=== PATIENT | male | born 1940 | race Caucasian/White ===

== ENCOUNTER 2016-05-14 21:52 | Observation (INO) | payer OTHER ==
[2016-05-14] MEDS ORDERED: NITROGLYCERIN SL PRN (21:59)
[2016-05-14] MEDS ORDERED: ASPIRIN PO STA (21:59)
[2016-05-14] MEDS ORDERED: MORPHINE IV ONE (22:08)
--- NOTE | 2016-05-14 22:14 | PROVIDER DOCUMENTATION ---
HPI-Chest Pain - General Chief Complaint: Chest Pain Stated Complaint: CP Time Seen by Provider: 05/14/16 21:58 Allergies/Adverse Reactions: Patient Allergies Allergy/AdvReac Type Severity Reaction Status Date / Time Sulfa (Sulfonamide Allergy Mild RASH Verified 05/14/16 22:19 Antibiotics) [Sulfa(Sulfonamide Antibiotics)] Home Medications: Home Medication List Medication Instructions Recorded Confirmed Last Taken Type Omeprazole 20 mg PO DAILY 02/22/12 09/25/14 09/25/14 05:15 History Rosuvastatin Calcium [Crestor] 10 mg PO DAILY #0 tablet 02/23/12 09/25/14 18:30 Rx Temazepam [Restoril] 30 mg PO HS PRN PRN #30 capsule 02/23/12 09/25/14 09/24/14 18:30 Rx Acetaminophen [Tylenol] 1,000 mg PO Q6H PRN PRN 09/24/14 09/24/14 Unknown History Amiodarone [Cordarone] 100 mg PO DAILY 09/24/14 09/25/14 09/25/14 05:15 History Furosemide [Lasix] 20 mg PO TID 09/25/14 09/25/14 09/24/14 18:00 History Glucosamine/D3/Boswellia Madhuri 2 each PO DAILY 09/25/14 09/25/14 09/25/14 05:15 History [Osteo Bi-Flex Caplet] Potassium Chloride [Klor-Con M20] 20 meq PO DAILY 09/25/14 09/25/14 09/25/14 05: 15 History Tamsulosin HCl [Tamsulosin HCl] 0.4 mg PO DAILY 09/25/14 09/25/14 09/24/14 18: 30 History - History of Present Illness-CP Nature of Presenting Problem: Pt comes in with complaint of CP that started yesterday while walking up a hill. He denies any SOB, N/V/D. The pain is midsternal and the pain radiated to the back. The pain is reproducible with palpation. the pain in his right side of his back is more definite pain and the patient is in 10/10 pain with movement. Review of Systems - Adult - REVIEW OF SYSTEMS - ADULT Constitutional: reports: no symptoms reported. denies: chills, fever, fatique, night sweats, weight gain, weight loss Eyes: reports: no symptoms reported. denies: discharge, dry eyes, decreased vision, blurred vision, double vision, eye pain, redness Ears, Nose, Mouth & Throat: reports: no symptoms reported. denies: ear discharge, hearing loss, tinnitus, epistaxis, sinus problem, mouth/dental pain, hoarseness, throat swelling Cardiovascular: reports: see HPI, chest pain. denies: edema, heart murmur, irregular heart rate, orthopnea, poor circulation, PND, syncope Respiratory: reports: no symptoms reported. denies: chronic cough, cough, dyspnea on exertion, excessive sputum production, hemoptysis, shortness of breath, wheezing Gastrointestinal: reports: see HPI. denies: abdominal pain, hematemesis, constipation, diarrhea, difficulty swallowing, frequent heartburn, nausea, poor appetite, rectal bleeding, vomiting Genitourinary: reports: no symptoms reported. denies: dysuria, discharge, frequency, flank pain, frequent UTI's, hesitency, incontinence, urgency Musculoskeletal: reports: see HPI, back pain. denies: bone pain, frequent leg cramps, joint pain, joint swelling, muscle aches, muscle weakness Integumentary: reports: no symptoms reported. denies: hives, hair loss, itching , mole changes, rash, skin sores/ulcer, skin thickening Neurological: reports: no symptoms reported. denies: ataxia, dizziness/vertigo , headache/migraines, loss of balance, numbness, paresthesia, slurred speech, syncope, tremors Psychiatric: reports: no symptoms reported. denies: anxiety, anti-depressant use, alcohol/drug dependence, depression, emotional problems, insomnia, panic attacks, suicidal thoughts Endocrine: reports: no symptoms reported. denies: change in skin pigment, excessive sweating, goiter, cold intolerance, increased hunger, increased thirst , polyuria Hematologic/Lymphatic: reports: no symptoms reported. denies: blood clots, easy bruising, lymphedema, prolonged bleeding, swollen lymph nodes, transfusions Allergic/Immunologic: reports: no symptoms reported. denies: allergic reactions , allergic rhinitis, eczema, food allergy, hay fever, positive PPD, urticaria All Other Systems: Reviewed and Negative Past History - Adult - PAST MEDICAL HISTORY-ADULT Review of Records: reports: Old Records Reviewed, Nursing Assessment Review, Medications Reviewed, Social history reviewed & non-contributory. Major Childhood Illnesses: reports: denies history Cardiovascular: reports: A-Fib, HTN, hyperlipidemia Respiratory: reports: denies history Gastrointestinal: reports: denies history Obstetrical/Gynecological: reports: denies history Genitourinary: reports: denies history Musculoskeletal: reports: denies history Neurological: reports: denies history Endocrine/Immune: reports: denies history Other Conditions: reports: denies history - PRIOR SURGERIES/PROCEDURES Surgical/Procedure History: reports: reviewed, not pertinent - PRIOR HOSPITALIZATIONS Prior Hospitalizations: reports: for other non-related - IMMUNIZATION STATUS Childhood Immunizations: See Nurse Assessment Flu Vaccine: See Nurse Assessment - FAMILY HISTORY Family History: reviewed, not pertinent - SOCIAL HISTORY Smoking: denies Substance Use: none/never Alcohol Use Frequency: never Physical Exam-General - PHYSICAL EXAM-ADULT Initial Vital Signs Reviewed: Yes - CONSTITUTIONAL General Appearance: alert, no apparent distress, moderate distress - EYES Eyes: PERRL/EOMI, pink conjunctivae, fundi clear, no AV nicking - HEAD, EARS, NOSE, MOUTH & THROAT HENMT: normocephalic/atraumatic, moist mucous membranes, normal ENT inspection - NECK Neck: non-tender, full range of motion, supple - RESPIRATORY Respiratory: chest non-tender, lungs clear, normal breath sounds, no pleuratic chest pain, no respiratory distress - CARDIOVASCULAR Cardiovascular: normal peripheral pulses, regular rate, rhythm, no edema, no gallop, no JVD, no murmur - GASTROINTESTINAL (ABDOMEN) Abdominal Exam: normal bowel sounds, non tender, soft - GENITOURINARY Rectal Exam: deferred - MUSCULOSKELETAL Back Exam: no CVA tenderness, vertebral tenderness Extremity: normal range of motion, non-tender, normal gait, normal inspection - SKIN Integumentary: normal color, normal turgor, warm/dry - NEUROLOGIC Neurologic: delivery stock clerk II-XII nml as tested, grossly normal - PSYCHIATRIC Psych/Mental Status: normal mood/affect, normal thought content, normal thought process, oriented x 3 Progress - PLAN OF CARE/RESULTS Progress/Plan/Lab Results: Laboratory Tests 05/14/16 05/14/16 05/14/16 22:13 22:13 22:13 WBC 7.22 RBC 4.31 L Hgb 13.4 L Hct 40.7 L MCV 94.4 MCH 31.1 H MCHC 32.9 L RDW Std Deviation 13.6 Plt Count 213 MPV 11.0 H Immature Gran % (Auto) 0.6 H Neut % (Auto) 67.1 Lymph % (Auto) 19.9 L Morton % (Auto) 7.8 Eos % (Auto) 4.0 Baso % (Auto) 0.6 Immature Gran # (Auto) 0.04 Neut # (Auto) 4.85 Lymph # (Auto) 1.44 Morton # (Auto) 0.56 Eos # (Auto) 0.29 Baso # (Auto) 0.04 PT INR PTT (Actin FS) D-Dimer 0.96 H Sodium 141 Potassium 4.0 Chloride 100 Carbon Dioxide 25 Anion Gap 16 BUN 50 H Creatinine 1.9 H Estimated GFR/1.73 m2 35 BUN/Creatinine Ratio 26 Glucose 103 Calculated Osmolality 295 Calcium 9.7 Magnesium 2.1 Total Bilirubin 0.30 AST 21 ALT 17 Alkaline Phosphatase 68 Creatine Kinase 114 Troponin T Uos-M-Sfbzdyscdma Pept Total Protein 7.7 Albumin 4.4 Globulin 3.3 Albumin/Globulin Ratio 1.3 05/14/16 05/14/16 05/14/16 22:13 22:13 22:13 WBC RBC Hgb Hct MCV MCH MCHC RDW Std Deviation Plt Count MPV Immature Gran % (Auto) Neut % (Auto) Lymph % (Auto) Morton % (Auto) Eos % (Auto) Baso % (Auto) Immature Gran # (Auto) Neut # (Auto) Lymph # (Auto) Morton # (Auto) Eos # (Auto) Baso # (Auto) PT 10.7 INR 1.01 PTT (Actin FS) 25.2 D-Dimer Sodium Potassium Chloride Carbon Dioxide Anion Gap BUN Creatinine Estimated GFR/1.73 m2 BUN/Creatinine Ratio Glucose Calculated Osmolality Calcium Magnesium Total Bilirubin AST ALT Alkaline Phosphatase Creatine Kinase Troponin T < 0.010 [id number]-M-Itdrnnjdbks Pept 32 Total Protein Albumin Globulin Albumin/Globulin Ratio Orders Category Date Time Status Cardiac Monitoring DIRECTED Care 05/14/16 21:59 Active Oxygen Therapy- ED Nursing DIRECTED Care 05/14/16 21:59 Active Saline Loc NOW Care 05/14/16 21:59 Active CHEST-1 VIEW [RAD] Stat Exams 05/14/16 21:59 Taken LUNG SCAN / VQ [NM] Routine Exams 05/15/16 08:00 Ordered CBC WITH ELECTRONIC DIFF [HEME] Stat Lab 05/14/16 22:13 Completed CK PROFILE [SP CHEM] Stat Lab 05/14/16 22:13 Completed COMPREHENSIVE METABOLIC PANEL [CHEM] Stat Lab 05/14/16 22:13 Completed D-DIMER [CHEM] Stat Lab 05/14/16 22:13 Completed MAGNESIUM [CHEM] Stat Lab 05/14/16 22:13 Completed PRO B-NATRIURETIC PEPTIDE Stat Lab 05/14/16 22:13 Completed PROTIME WITH INR [COAG] Stat Lab 05/14/16 22:13 Completed PTT [COAG] Stat Lab 05/14/16 22:13 Completed TROPONIN T Stat Lab 05/14/16 22:13 Completed Aspirin Med 05/14/16 22:15 Discontinued 243 mg .ROUTE .STK-MED ONE Aspirin Med 05/14/16 22:22 Discontinued 243 mg PO NOW ONE Aspirin Med 05/14/16 21:59 Discontinued 325 mg PO STAT STA Aspirin Med 05/14/16 22:22 Discontinued 81 mg PO NOW ONE Fondaparinux [Arixtra] Med 05/14/16 23:14 Discontinued 10 mg SUBQ NOW ONE Morphine Med 05/14/16 22:08 Discontinued 4 mg IV NOW ONE Nitroglycerin Sl [Nitroglycerin] Med 05/14/16 21:59 Active 0.4 mg SL Q5M PRN PRN EKG [EKG] Stat Ther 05/14/16 21:56 Ordered Vital Signs - 24 hr 05/14/16 23:11 Pulse Rate 51 L Respiratory 9 L Rate Blood Pressure 140/78 O2 Sat by Pulse 97 Oximetry Departure - Departure Time of Disposition Order: 23:15 DIAGNOSIS: Chest pain Qualifiers: Chest pain type: unspecified Qualified Code(s): R07.9 - Chest pain, unspecified Disposition: ADMITTED INPATIENT 09 Certified Medical Emergency: Emergent Condition: Good Additional Instructions: ED Follow Up Instructions: You have been treated by a care provider in the Emergency Department. These instructions are being provided to you so you can have an understanding of how to care for yourself upon discharge. Upon discharge from the Emergency Department, you are responsible for making arrangements for follow-up care by a physician of your choice. Take all prescribed medications as directed. Return to the Emergency Department immediately for any new or worsening symptoms. You may call the Physician Referral phone number at [phone] to obtain a list of Physicians who are taking new patients. Referrals: Brandyn Haywood, [Primary Care Provider] - Attestation - Physician/ CLEMENTE Attestation Patient care was provided by Advanced Practice Provider:: Yes Advanced Practice Provider:: Reji Villareal Advanced Practice Provider documentation review:: The Mid-level provider documentation, treatment plan and medical decision making was reviewed by the physician who agrees with all treatment and medical decision making by the MLP.
[2016-05-14] MEDS ORDERED: ASPIRIN ONE (22:15)
--- NOTE | 2016-05-14 22:21 | ED EKG INTERP ---
EKG Interpretation - EKG Time of EKG reading by physician:: 21:59 EKG Read and Signed by:: Silvestre Eisenberg EKG Interpretation (*Must complete 3 of following elements*): Normal Rate: 60 Rhythm: Sinus rhythm with premature supraventricular complexes Attestation - Scribe Verification/Attestation Scribe:: Arden Cloud Acting as Scribe for:: Silvestre Eisenberg Scriblinda documention review:: This chart was documented by a scribe and accurately reflects the service the provider performed and the decisions made by the provider.
[2016-05-14 22:22] LABS: MANUAL DIFF NEEDED? NO
[2016-05-14] MEDS ORDERED: ASPIRIN PO ONE ×2 (22:22)
[2016-05-14 22:24] LABS: BASO% 0.6 % (0.0-0.8); EOS# 0.29 X1000 (0.0-0.7); HEMATOCRIT 40.7 % (42.0-52.0); HEMOGLOBIN 13.4 g/dL (14.0-18.0); IMM GRAN# 0.04 X1000 (0.0-0.04); IMM GRAN% 0.6 % (0.0-0.5); LYMPH# 1.44 X1000 (1.2-3.4); LYMPH% 19.9 % (20.5-51.1); MCH 31.1 PG (27-31); MCHC 32.9 g/dL (33-37); MCV 94.4 FL (81-99); MONO# 0.56 X1000 (0.11-0.59); MONO% 7.8 % (1.7-9.3); NEUT% 67.1 % (42.2-75.2); PLT 213 X1000 (130-400); RBC 4.31 XMIL (4.7-6.1)
[2016-05-14 22:39] LABS: INR 1.01; PROTIME 10.7 Seconds (9.2-11.7); PTT 25.2 Seconds (22.0-36.0)
[2016-05-14 22:52] LABS: ALBUMIN 4.4 g/dL (3.5-5.0); CALCIUM 9.7 mg/dL (8.8-10.2); MAGNESIUM 2.1 mg/dL (1.5-2.7); TOTAL BILIRUBIN 0.3 mg/dL (0.20-1.00); TOTAL PROTEIN 7.7 g/dL (6.3-8.3)
[2016-05-14] MEDS ORDERED: ARIXTRA SUBQ ONE (23:14)
[2016-05-15] MEDS ORDERED: BENADRYL PO ONE (01:42)
[2016-05-15 02:04] LABS: AMYLASE 54 U/L (20-200); LIPASE 43 U/L (13-60)
[2016-05-15] MEDS ORDERED: MORPHINE IV PRN (02:22)
[2016-05-15] MEDS ORDERED: ZOFRAN IV PRN (02:22)
[2016-05-15] MEDS ORDERED: TYLENOL PO PRN (02:22)
--- NOTE | 2016-05-15 04:50 | HISTORY AND PHYSICAL ---
DATE AND TIME OF HISTORY AND PHYSICAL: May 15, 2016 at 0100. PRIMARY CARE PROVIDER: Dr. Brandyn Haywood. CHIEF COMPLAINT: Chest pain. HISTORY OF PRESENT ILLNESS: Mr. Mcneal is a 75-year-old male with a past medical history of hypertension, chronic renal insufficiency, prediabetes, dyslipidemia, atrial fibrillation, chronic back pain, and prostate cancer. The patient reports that he does intermittently go into atrial fibrillation sometimes and for this he takes amiodarone as well as Xarelto only when he is in atrial fibrillation. He regularly sees Dr. Joe at [place] for cardiology care. Patient has had a history in the past of having to be cardioverted secondary to atrial fibrillation. He presented tonight to the ER complaining of chest pain that started yesterday on May 13, 2016. Patient reports his chest pain as being in the epigastric area. He reports it radiating through to his back and the pain comes from his back around to his right shoulder at times. He reports that the pain is worse with movement. He reports that this was with any movement. He noticed it with light movement, activity, and with more strenuous activity as well. He also reports that when he does try to move the pain in his epigastric area is intense and causes him to feel slightly short of breath though when he is at rest and not moving he denies any shortness of breath. He denies any symptoms of dizziness, palpitations, diaphoresis, nausea, vomiting. The patient does report that he has chronic diarrhea secondary to having radiation for his prostate cancer. He does report that he occasionally has some blood noted in his stool though this is not uncommon for him though is not present at this time. He also reports some intermittent dysuria secondary to his prostate cancer as well though denied any at this time. He denies any swelling in extremities. Patient's pain located in the epigastric area is reproducible with palpation. Upon evaluation in the ER, the patient's EKG showed a sinus rhythm with premature supraventricular complexes at a rate of 60, QTc was 424. Troponin and CK were negative. ProBNP was 32. Patient's D-dimer was elevated at 0.96 though due to the patient's renal function we were unable to perform a CTA of pulmonary arteries. We will admit the patient for further treatment and evaluation of his chest pain as well as elevated D-dimer. We will perform a V/Q scan in the morning. REVIEW OF SYSTEMS: A 14-point review of systems was conducted with the patient and all were negative except for pertinent positives mentioned in above HPI. PAST MEDICAL HISTORY: 1. Hypertension. 2. Chronic renal insufficiency. 3. Dyslipidemia. 4. Hypogonadism. 5. Atrial fibrillation. 6. Chronic back pain. 7. Prostate cancer. 8. Prediabetes. PAST SURGICAL HISTORY: 1. Tonsillectomy as a child. 2. Appendectomy in 1959. 3. Right inguinal repair in 1967. 4. Left knee repair in 1960. 5. Low back surgery in 1968. 6. Lipoma removed from under his left arm. 7. A total left hip replacement. SOCIAL HISTORY: Patient denied any past or present tobacco or illicit drug use. He does report that he occasionally drinks alcohol but this is very minimal, only 1 to 2 drinks. He is and lives with his who is a pathologist here at [facility]. FAMILY HISTORY: His father has a history of hypertension and diabetes though secondary to a stroke. His mother had a history of colon cancer and secondary to pancreatic cancer at age 81. He recently had a sister pass away who he reported had multiple medical problems though her cause of was secondary to sepsis and he has another sister that has a history of trigeminal neuralgia and fibromyalgia. ALLERGIES: Patient reports allergy to sulfa antibiotics. HOME MEDICATIONS: 1. Potassium chloride 20 mEq p.o. daily. 2. Lasix 20 mg p.o. daily. 3. Crestor 10 mg p.o. daily. 4. Flomax 0.4 mg p.o. b.i.d. 5. Doxycycline 100 mg p.o. daily. 6. Vitamin B6 of 50 mg p.o. daily. 7. MiraLax 17 g p.o. daily. 8. Cranberry soft gel 12,600 mg 1 p.o. at bedtime. 9. Multivitamin 1 p.o. daily. 10.Vitamin B12 of 2500 mcg p.o. daily. 11.Valsartan 320 mg p.o. at bedtime. 12.Procardia. The patient reports that he does not know the dosage of this medication though takes it once daily. DIAGNOSTIC DATA: Laboratory results: White blood cell count 7.2. Hemoglobin 13.4. Hematocrit 40.7. Platelet count is 213. PT 10.7. INR of 1.01. PTT 25.2. D-dimer 0.96. Sodium 141. Potassium 4. Chloride 100. Bicarbonate 25. BUN 50. Creatinine 1.9. GFR was 35. Glucose 103. Calcium 9.7. Magnesium 2.1. Liver function tests within normal limits. CK 114. Troponin less than 0.01. ProBNP 32. Amylase 54. Lipase 43. Chest 2-view x-ray showed no acute abnormality though we are awaiting the official radiology overread. PHYSICAL EXAMINATION: VITAL SIGNS: Heart rate 52, respirations 13, blood pressure 135/79, oxygen saturation is 98% room air. During my examination at bedside, the patient's quality assurance monitor did show the patient maintaining heart rate mostly in the 50s though he did have some intermittent dips into the 40s with 44 being the lowest heart rate identified. GENERAL: Mr. Mcneal is a well-nourished, well-developed 75-year-old male who is resting comfortably in the ER stretcher, was in no acute distress, was awake, alert, and able to answer all questions appropriately. HEENT: Head is atraumatic, normocephalic. Pupils are equal, round, reactive to light, are 3 mm bilaterally and brisk. Subconjunctivae are pink. Oral mucosa was moist. Oropharynx clear. NECK: Supple. Trachea is midline. No JVD noted. No carotid bruits noted upon auscultation bilaterally. CARDIOVASCULAR: Patient has a normal S1, S2. No murmurs, gallops, or rubs appreciated with a regular rate but it is slightly bradycardic. PULMONARY: Patient has symmetrical chest expansion bilaterally. Lung sounds are clear to auscultation in bilateral full botello. ABDOMEN: Soft, nondistended, though the patient does have a slightly protuberant abdomen noted. He did report some tenderness upon palpation in the epigastric area. Bowel sounds were present in all 4 quadrants, were normoactive. EXTREMITIES: No clubbing, cyanosis, or edema noted. Pulse, motor, and sensory were intact in all extremities. Pedal pulses were 3 plus bilaterally. Radial pulses are 3 plus bilaterally. Capillary refill is less than 3. INTEGUMENTARY: The patient's skin is pink, warm, dry, and intact. No lesions or sores noted. NEUROLOGICAL: Patient is alert and oriented to person, place, time, and situation. Cranial nerves II through XII are grossly intact. ASSESSMENT AND PLAN: 1. Chest pain though this chest pain seems to be mainly located in the epigastric area. He does report some radiation to his back as well as some shortness of breath as well. He does have a cardiac history of having hypertension and atrial fibrillation. We will continue with a series of cardiac enzymes, repeat an EKG in the morning, and have placed a cardiology consult with Dr. Colon and await their evaluation and further recommendations. The patient will be placed on continuous cardiac telemetry to monitor his heart rate closely. 2. Elevated D-dimer. Due to the patient's chronic kidney disease, we are unable to perform a CTA pulmonary arteries. We will obtain a V/Q scan of the lungs in the morning and continue to follow and await these results. 3. Chronic kidney disease stage 3b. The patient had not had any previous labs recently, the last being in 2013, though I did ask his what his creatinine normally is and she reports that it ranges from 2 to 2.1. Patient's creatinine at this time is 1.9 so this appears to be his baseline. We will just continue to follow and renally dose medications as necessary. 4. Hypertension. We will continue with the patient's valsartan. 5. Dyslipidemia. We will continue the patient's Crestor. We will place the patient on the medical floor with telemetry. He will have vital signs q.4 h. DVT prophylaxis at this time has been provided with the patient receiving a dose of 10 mg of Arixtra subcutaneous in the ER for treatment of suspected pulmonary embolism. GI prophylaxis is provided with omeprazole 20 mg p.o. daily. We will repeat cardiac enzymes, EKG, CBC, and BMP in the morning, and we will await further evaluations from Cardiology and results of the V/Q scan. Dictated by CAPRICE Gastelum for Jose Reyes MD
[2016-05-15 05:56] LABS: MANUAL DIFF NEEDED? NO
[2016-05-15 06:26] LABS: BASO% 0.8 % (0.0-0.8); EOS# 0.34 X1000 (0.0-0.7); EOS% 5.5 % (0.0-10.0); HEMATOCRIT 37.5 % (42.0-52.0); HEMOGLOBIN 12.3 g/dL (14.0-18.0); IMM GRAN# 0.05 X1000 (0.0-0.04); IMM GRAN% 0.8 % (0.0-0.5); LYMPH% 27.6 % (20.5-51.1); MCH 31.1 PG (27-31); MCHC 32.8 g/dL (33-37); MCV 94.7 FL (81-99); MONO# 0.57 X1000 (0.11-0.59); MONO% 9.2 % (1.7-9.3); MPV 11.4 FL (7.4-10.4); NEUT% 56.1 % (42.2-75.2); PLT 185 X1000 (130-400); RBC 3.96 XMIL (4.7-6.1)
--- NOTE | 2016-05-15 06:44 | EKG Report ---
Test Performed on : 05/15/2016 06:11:44 AM Test Reason : Bradycardia Blood Pressure : / mmHG Vent. Rate : 046 BPM Atrial Rate : 046 BPM P-R Int : 150 ms QRS Dur : 086 ms QT Int : 466 ms P-R-T Axes : 058 -06 015 degrees QTc Int : 407 ms Sinus bradycardia. Otherwise normal ECG When compared with ECG of 15-MAY-2016 06:10, (Unconfirmed) premature ventricular complexes. are no longer present premature atrial complexes. are no longer present QRS axis shifted right Confirmed by Jose Elias Boykin MD ([id number]) on 05/16/2016 9:37:00 PM
[2016-05-15] MEDS ORDERED: PRILOSEC PO SCH (07:00)
[2016-05-15 07:12] LABS: CALCIUM 9.6 mg/dL (8.8-10.2); MAGNESIUM 2.1 mg/dL (1.5-2.7); POTASSIUM 3.9 mmol/L (3.5-5.1)
--- NOTE | 2016-05-15 07:19 | EKG Report ---
Test Performed on : 05/15/2016 03:11:21 AM Test Reason : Bradycardia Blood Pressure : / mmHG Vent. Rate : 052 BPM Atrial Rate : 052 BPM P-R Int : 154 ms QRS Dur : 092 ms QT Int : 476 ms P-R-T Axes : 080 009 037 degrees QTc Int : 442 ms Sinus bradycardia. with marked sinus arrhythmia. with occasional premature ventricular complexes. Otherwise normal ECG When compared with ECG of 14-MAY-2016 21:59, (Unconfirmed) premature ventricular complexes. are now present premature supraventricular complexes. are no longer present Confirmed by Jose Elias Boykin MD ([id number]) on 05/16/2016 9:34:31 PM
--- NOTE | 2016-05-15 07:37 | EKG Report ---
Test Performed on : 05/14/2016 9:59:16 PM Test Reason : chest pain Blood Pressure : / mmHG Vent. Rate : 060 BPM Atrial Rate : 060 BPM P-R Int : 148 ms QRS Dur : 082 ms QT Int : 424 ms P-R-T Axes : 072 -13 026 degrees QTc Int : 424 ms Sinus rhythm. with premature supraventricular complexes. Otherwise normal ECG When compared with ECG of 22-FEB-2012 11:49, premature supraventricular complexes. are now present Vent. rate has decreased BY 34 BPM Unconfirmed Result
[2016-05-15] MEDS ORDERED: FLOMAX PO SCH (09:00)
[2016-05-15] MEDS ORDERED: MIRALAX PO SCH (09:00)
[2016-05-15] MEDS ORDERED: ASPIRIN PO SCH (09:00)
[2016-05-15] MEDS ORDERED: NON-FORMULARY MED (Multivitamin [Multivitamins] 1 EACH) PO SCH (09:00)
[2016-05-15] MEDS ORDERED: THERA M PLUS PO SCH (09:00)
[2016-05-15] MEDS ORDERED: CRESTOR PO SCH (09:00)
--- NOTE | 2016-05-15 10:48 | Diag Imaging Result Document ---
PROCEDURE NAME: CHEST-1 VIEW - 05/14/2016 PORTABLE CHEST X-RAY, 05/14/2016: COMPARISON: 12/21/2014. FINDINGS: Stable small calcified granulomas in the right upper lobe. No focal infiltrates. No pneumothorax or large effusion. Heart size is normal. IMPRESSION: No acute disease.
[2016-05-15] MEDS ORDERED: LEXISCAN ONE (13:50)
--- NOTE | 2016-05-15 14:46 | PROGRESS NOTE ---
DATE: 05/15/2016 SUBJECTIVE: Mr. Mcneal was having some chest pain. Review, he presented this morning, 05/15. He is followed by Dr. Roni Haywood. This is a 75-year-old white male with a past medical history of hypertension, chronic renal insufficiency, prediabetes, dyslipidemia, atrial fibrillation, chronic back pain, prostate cancer. Apparently he has been told that he has a protruded disk in the thoracic spine. He has been evaluated by Dr. Haywood, the neurosurgeon in [place], who did not want to surgery. He is also followed by Dr. Joe. He regularly sees Dr. Joe for cardiology care. He takes amiodarone. He is also on Xarelto for his atrial fibrillation. He presented to the emergency room with chest pain. It started on Sunday in the epigastric area, radiating through his back and comes back around his shoulder at times. Reports pain is worse with any movement. He noticed it with light movement and activity and some strenuous activity as well. Admitted with chest pain. 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 Occasionally had some blood noted in the stool but not present at this time. In the emergency room on the EKG he was in sinus rhythm. A few PACs were noted. Rate of 60. QTc was 424. LABORATORY: CPK was negative. ProBNP was 32. His enzymes thus far were negative. Troponins are negative. Sodium 139, potassium 3.9, chloride 101, bicarb 26, BUN 47, creatinine 1.6, magnesium 2.1. CBC: White blood cell count 6,170, hematocrit 37, platelet count 185,000. His baseline creatinine is 1.5 when I saw him in September so I think he does have some chronic kidney insufficiency. EKG repeated this morning, normal sinus rhythm, no ST-segment deviations. ASSESSMENT AND PLAN: 1. Chest pain. Mainly located in the epigastric area. Reports radiation to his back. 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 He suspects that is what it is. Cardiology consult and we will make sure that there is no evidence of coronary insufficiency at this time. Followed by Dr. Joe in [place]. 2. Elevated D-dimer. The patient has chronic kidney disease and renal insufficiency. Serum creatinine baseline about 1.5 to 1.6. Unable to perform a CTA of the pulmonary arteries so we will try to get a V/Q scan. 3. Chronic kidney disease stage 3B. Follow his creatinine. Volume status looks good. 4. Hypertension. 5. Dyslipidemia. Note, I do not have any reports of his previous coronary anatomy. I think the plan is to get an echocardiogram today.
--- NOTE | 2016-05-15 14:53 | CONSULTATION ---
DATE OF CONSULTATION: 05/15/2016 REQUESTING PHYSICIAN: Hospitalist Service REASON FOR CONSULTATION: Chest pain. HISTORY OF PRESENT ILLNESS: Mr. Mcneal is a 75-year-old male. He is the of JoshuaAbigail. He presented to the hospital yesterday because on Sunday evening as he was walking downhill, he started noticing discomfort in the center of his chest. This appeared to worsen as he continued to walk and eventually seemed to get better as he stopped walking. The rest of the evening, he continued to notice some mild discomfort, but it was not really significant. The next day, he noted some persistent discomfort in the center of the chest; however, he said that it would radiate to the right shoulder blade and also would appear to worsen by turning his head in certain directions. That reminded him of a previous bout of similar discomfort that he had experienced about 5 years ago, and he was diagnosed with a herniated thoracic spine disk. He is known to have had multiple herniated disks in the past including lumbar and cervical spine. At any rate, when he mentioned the pain in the chest to his , he immediately was brought to the emergency room. In the ER, he received an electrocardiogram that showed no acute changes. They have checked multiple troponin levels, and they are negative. His Pro BNP level is normal. His BUN and creatinine were slightly elevated at 50 and 1.9 at the time of initial encounter. His D-dimer was also minimally elevated at 0.96. The patient was advised to stay in the hospital for further testing. The patient at this time feels well. He received one dose of morphine in the ER that apparently did not take the pain away immediately, but over the course of the ensuing hours, the pain has subsided. The last EKG was done at 6:11 a.m. this morning, and it shows sinus bradycardia at rate of 46 beats per minute. He is not having any more symptoms. He denies having nausea, vomiting, fever or palpitations. PAST MEDICAL HISTORY: Positive for paroxysmal atrial fibrillation. He has been seen by the [facility] and also by Dr. Duncan Joe who is his primary installer. He had a heart catheterization in 03/2012, and they found a 40% stenosis of the right coronary artery. He has been relegated to medical therapy. He has history of hypertension, diabetes mellitus type 2, obstructive sleep apnea, arthritis of the knee and ankle, diverticulosis. He has also been diagnosed with prostate cancer. He also has some chronic kidney disease. PAST SURGICAL HISTORY: He has had left hip replacement, tonsillectomy, hernia repair, left knee surgery, back surgery for herniated disk, appendectomy and lipoma resection. SOCIAL HISTORY: He is . He is retired. Not a smoker. FAMILY HISTORY: Father had hypertension, diabetes and a stroke. Mother had colon cancer. ALLERGIES: He is allergic to sulfa drugs. HOME MEDICATIONS: He takes Procardia 60 mg daily, valsartan 320 daily, cyanocobalamin 2500 mcg daily, doxycycline 100 mg daily, tamsulosin 0.4 mg twice a day, Crestor 10 mg daily, Lasix 20 mg daily, potassium chloride 20 mEq daily. REVIEW OF SYSTEMS: He is limited by arthritis of the left knee and left ankle when he walks, he has to walk with a brace. Otherwise, he normally has no exertional angina. He says that his atrial fibrillation typically causes him to feel tired; however, he does not experience any palpitations or syncope. He has noted that over the course of the years, his pulse has dropped. He takes amiodarone and Eliquis only as needed whenever he notices that he is in atrial fibrillation. I had a lengthy discussion with him about the lack of protection against stroke if he did that. He normally has no gastrointestinal complaints other than occasional specks of blood that he has noted when he moves his bowel ever since he underwent special proton radiation therapy for his prostate cancer. That was done at [place], [place], about 3 years ago. That required 38 sessions of radiation. PHYSICAL EXAMINATION: Blood pressure is 126/66, pulse 46, temperature 97.3, respirations 18. He is awake, alert and oriented, no distress. HEENT is unremarkable. Chest is clear to auscultation and percussion. Heart sounds are regular and rhythmic. No gallop or murmur. Abdomen is nontender, soft. No masses. No hepatomegaly. Extremities show good pulses, no edema. Neurologic: He moves all 4 extremities, follows commands. DIAGNOSTIC DATA: Sodium is 139, potassium 3.9, BUN is 47, creatinine 1.6. His white count is 6170, hemoglobin 12.3, platelet count 185,000. Magnesium is 2.1. Amylase and lipase normal. Pro BNP is normal. IMPRESSION: 1. The patient is presenting with midsternal chest pain radiating to the back and shoulder blade, brought on by exercise. This could be exertional angina; however, the patient identifies the discomfort as similar to the one he experienced when he had a herniated thoracic spine disk. 2. History of paroxysmal atrial fibrillation. 3. History of mild to moderate coronary artery disease. Lesion in the right coronary artery noted 4 years ago. 4. History of hyperlipidemia. 5. History of diabetes mellitus type 2. 6. Minimally elevated D-dimer. Probably this is nonspecific. RECOMMENDATIONS: At this point in time, I would suggest to do a venous ultrasound of the lower extremities to exclude thrombus (DVT). I would pursue a myocardial perfusion stress test to exclude coronary artery disease. If those 2 studies are negative, then the patient can be discharged to follow up with his usual physicians. I had a lengthy discussion with him about potential options for management of his atrial fibrillation. I suggested to him to resume Eliquis until he discusses further therapy with his usual installer. His glomerular filtration rate based on his current body weight would be 61 mL per minute which makes him chronic kidney disease stage 2, and he could safely use Eliquis 5 mg twice a day. MTDD
[2016-05-15 15:33] VITALS: BP 124/67
--- NOTE | 2016-05-15 16:36 | Diag Imaging Result Document ---
PROCEDURE NAME: MYOCARDIAL PERF SCAN, STR/REST - 05/15/2016 INDICATION: Chest pain. PROCEDURES PERFORMED: 1. One-day stress rest myocardial perfusion imaging. 2. Walking Lexiscan stress. PROCEDURE IN DETAIL: Mr. Mcneal was brought to the nuclear laboratory and had a resting study with injection of 16 mCi of technetium-99m sestamibi with usual imaging protocol utilized. He subsequently was brought back and had a walking Lexiscan stress and at peak stress, he was injected with 46.6 mCi of technetium-99m sestamibi with usual imaging protocol utilized. FINDINGS: LEXISCAN STRESS RESULTS: 1. Baseline EKG shows sinus rhythm. 2. Lexiscan stress did not demonstrate any clear evidence of ischemic related EKG changes or significant arrhythmias identified during the course of the study. PERFUSION IMAGING RESULTS: 1. No evidence of abnormal extracardiac uptake. 2. TID ratio 0.98. 3. Perfusion imaging demonstrates a small size, moderate intensity defect located at the apex. This defect actually improves from rest imaging to stress imaging. It is moderate in intensity at rest and mild in intensity on stress. This defect is fixed. There is no evidence of reversibility. This could represent apical thinning artifact as the area involved appears to have normal wall motion on gating. There is no evidence of ischemia. 4. Normal ejection fraction of 71%. End-diastolic volume 133, end-systolic volume of 39 and normal wall motion.
--- NOTE | 2016-05-15 17:50 | DISCHARGE SUMMARY ---
ADMISSION DATE: 05/15/2016 DISCHARGE DATE: 05/15/2016 HOSPITAL COURSE: Patient is followed by Dr. Roni Haywood. 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 He has been evaluated for his back and some bulging disks in thoracic spine per Dr. Haywood, Neurosurgery in [place]. He is a 75-year-old with past medical history of hypertension, chronic renal insufficiency, prediabetes, dyslipidemia, atrial fibrillation, chronic back pain and prostate cancer. Reports that he intermittently goes into atrial fibrillation sometimes and takes amiodarone on Xarelto only when he is in atrial fibrillation. He regularly sees Dr. Joe at [place] for Cardiology care. Patient has had a history in the past of being cardioverted for atrial fibrillation. Presented to the emergency room complaining of chest pain that started the day before, 05/13/2015. Patient states that chest pain as epigastric in area in area. Reports it radiates to his back. The pain comes from the back to the right shoulder at times and feels like pressure at points. Reports the pain is worse with movement. Reports that he did notice some pain without any move and this is what bothered him. Noticed with light movement activity, more strenuous activity as well. Reports that if he does try to move, the pain in his epigastric area is intensified and causes him to feel slightly short of breath, but when he is at rest not moving, he denies any shortness of breath. Denies any symptoms of dizziness, palpitations, diaphoresis, nausea or vomiting. The patient does report he has chronic diarrhea secondary to having radiation for his prostate cancer. He does report that he occasionally has some blood noted in his stool though this is not common for him. On evaluation in the emergency room EKG showed normal sinus rhythm. His enzymes were unremarkable. QTc interval was 424. Nuclear stress test read by Dr. Colon showed no sign of active ischemia. Lexiscan results, baseline EKG shows sinus rhythm. Lexiscan stress did not demonstrate any clear evidence of ischemia, related EKG changes or significant arrhythmias identified during the course of study. Perfusion imaging demonstrated a small size moderate intensity defect located in the apex. This defect actually improves from resting images to stress images. It is moderate in intensity at rest and mild intensity on stress. This defect is fixed, and there is no evidence of reversibility. Normal ejection fraction 71%. End-diastolic flow volume was 133, end-diastolic systolic volume was 39, normal wall motion. [place] the patient could go home. No sign of active ischemia. We will discharge on his home medications. I will let him have some small dose of [place] in case he has pain from his thoracic radicular-type pain, musculoskeletal pain. Follow up with Dr. Roni Haywood, follow up with Dr. Joe. DISCHARGE MEDICATIONS: He will go home on valsartan 320 mg at bedtime, tamsulosin 0.4 mg b.i.d., Crestor 10 mg a day, vitamin B6 50 mg daily, Klor-Con 20 mEq daily, MiraLAX 17 g daily, Procardia he takes daily, multivitamin 1 a day, Lasix 20 mg daily. He was taking doxycycline 100 mg p.o. daily and vitamin B12 25,000 mcg daily, cranberry, concentrate ascorbic acid, 12,600 mg 1 daily. I did mention sometimes doxycycline can cause some esophageal spasm so he may consider that.
[2016-05-15] MEDS ORDERED: DIOVAN PO SCH (21:00)
== END 2016-05-15 18:37 | disposition home or self-care (01) ==
LOC: ED 21:52 → 4N 23:00 → UNDOADMOB 05-15 01:40 → INTOOBSV 05-15 01:40 → UNDODISOB 05-15 18:37
PROVIDERS: ATTEND Emergency Medicine
DX: R07.89 Other chest pain (principal); M54.9 Dorsalgia, unspecified; E78.5 Hyperlipidemia, unspecified; I12.9 Hypertensive chronic kidney disease with stage 1 through stage 4 chronic kidney disease, or unspecified chronic kidney disease; E29.1 Testicular hypofunction; N18.3 Chronic kidney disease, stage 3 (moderate); G89.29 Other chronic pain; Z85.46 Personal history of malignant neoplasm of prostate; Z79.01 Long term (current) use of anticoagulants; Z92.3 Personal history of irradiation; R73.03 Prediabetes; Z96.642 Presence of left artificial hip joint; Z83.3 Family history of diabetes mellitus; Z82.49 Family history of ischemic heart disease and other diseases of the circulatory system; Z82.3 Family history of stroke; R79.1 Abnormal coagulation profile; Z80.0 Family history of malignant neoplasm of digestive organs; M17.9 Osteoarthritis of knee, unspecified; M19.072 Primary osteoarthritis, left ankle and foot; I48.0 Paroxysmal atrial fibrillation; R19.7 Diarrhea, unspecified
CPT/HCPCS: 71010; 78452; 80048; 80053; 82150; 82550; 83690; 83735; 83880; 84484; 85025; 85379; 85610; 85651; 85730; 86140; 93005; 93010; 93017; 93970; 94761; A9500; J1652; J2270